=== PATIENT | female | born 1975 | race Caucasian/White ===

== ENCOUNTER → 2017-01-05 | Outpatient (CLI) | payer OTHER ==
--- NOTE | 2017-01-05 12:11 | MA ---
Screening Digital Mammogram With iCAD Analysis Clinical Indications: Routine screening. Her maternal grandmother was diagnosed with breast cancer in her 50s. Technique: Standard cephalocaudal and mediolateral oblique projections were obtained. This examinatio n was processed by the iCAD computer aided detection system. Comparison: October 2015, January 2014, March 2009. Breast density: Type C; Heterogeneously dense. Findings: CAD was reviewed. No masses, suspicious calcifications or other signs of malignancy are id entified. There has been no significant change in the appearance of either breast. Impression: Negative mammogram. BI-RADS 1. Recommendation: Routine mammographic screening in one year as long as physical examination is negativ [facility]. Dense breast parenchyma diminishes mammographic sensitivity. Negative mammography should not preclude additional workup of a clinically suspicious finding. The patient's information is entered into a reminder system with a target due date for her next mammo gram.
== END ==
LOC: CIMAGING 10:21
DX: Z12.31 Encounter for screening mammogram for malignant neoplasm of breast (principal)

== ENCOUNTER → 2018-02-01 | Outpatient (CLI) | payer OTHER | LOC: CIMAGING 14:39 | PROVIDERS: ATTEND Obstetrics & Gynecology | DX: Z12.31 Encounter for screening mammogram for malignant neoplasm of breast (principal) ==

== ENCOUNTER → 2019-02-04 | Outpatient (CLI) | payer OTHER | LOC: CIMAGING 11:14 | PROVIDERS: ATTEND Obstetrics & Gynecology | DX: Z12.31 Encounter for screening mammogram for malignant neoplasm of breast (principal) ==